=== PATIENT | male | born 1965 | race Caucasian/White ===

== ENCOUNTER 2024-01-09 05:52 | Day surgery (SDC) | payer MEDICAID ==
[~2024-01-09] VITALS: Ht 177.8 cm; Wt 118.2 kg
[~2024-01-09 05:52] MED LIST: AMLO10TA55 PO; ATOR40TA71 PO; CETI10TA58 PO; FLUT16H NASAL; GLYCOPYRROLATE 0.2 MG/ML VIAL ONE; LIDOCAINE/PF 2% 5 ML VIAL ONE; PROPOFOL 1% 20 ML VIAL IVP ONE; PROPOFOL 1% ISO-OSM 1000 MG/100 ML BOTTLE ONE; SODIUM CHLORIDE 0.9% 1,000 ML ONE; TELM40TA8 PO
[2024-01-09] MEDS: SODIUM CHLORIDE 0.9% 1,000 ML IV ONE (06:33)
[2024-01-09] MEDS ORDERED: FERR325T27 PO (06:49)
[2024-01-09 07:10] LABS: GLUCOMETER DEV NAME(LOC) SDS.; GLUCOSE,POINT OF CARE 127 MG/DL (70-110)
[2024-01-09] MEDS ORDERED: NALOXONE HCL 0.4 MG/ML VIAL ONE (08:10)
[2024-01-09] MEDS ORDERED: FLUMAZENIL 0.1 MG/ML 5 ML VIAL IVP ONE (08:10)
[2024-01-09] MEDS ORDERED: DiphenhydrAMINE HCL 50 MG/ML VIAL ONE (08:10)
[2024-01-09] MEDS ORDERED: EPINEPHrine 1:10,000 [1 MG/10 ML] SYRINGE ONE (08:10)
[2024-01-09] MEDS ORDERED: SODIUM TETRADECYL SULFATE 3% 60 MG/2 ML VIAL IVP ONE (08:10)
[2024-01-09] MEDS ORDERED: ATROPINE SULFATE 0.1 MG/ML 10 ML SYRINGE IVP ONE (08:11)
[2024-01-09] MEDS ORDERED: OXYGEN THERAPY IH SCH (20:00)
== END 2024-01-09 10:10 | disposition home or self-care (01) ==
LOC: SURGERY 05:52
PROVIDERS: ATTEND Specialist
DX: D50.9 Iron deficiency anemia, unspecified (principal); C18.2 Malignant neoplasm of ascending colon; C18.0 Malignant neoplasm of cecum; K29.70 Gastritis, unspecified, without bleeding; I10 Essential (primary) hypertension; Z98.890 Other specified postprocedural states; Z88.8 Allergy status to other drugs, medicaments and biological substances; Z20.822 Contact with and (suspected) exposure to COVID-19
CPT/HCPCS: 45380; 45381; 43239; 82962; 88305; J2704 ×2; J3490 ×2; J7030; J0171; J0461; J1200; J2310